=== PATIENT | male | born 1970 | race Caucasian/White ===

== ENCOUNTER 2024-07-21 23:28 | Emergency (ER) | payer MEDICAID ==
[~2024-07-21] VITALS: Ht 177.8 cm; Wt 70.0 kg
[2024-07-21 23:42] VITALS: TEMP 98.8; O2SAT 98
[2024-07-22] MEDS: SODIUM CHLORIDE 0.9% 1,000 ML IV ONE
[2024-07-22 00:20] LABS: BASOPHILS % 0.5 % (0.0-2.0); EOSINOPHILS % 2.5 % (0.0-5.0); HEMATOCRIT. 34.4 % (42.0-52.0); HEMOGLOBIN. 11.3 g/dL (14.0-18.0); LYMPHOCYTES % 11.3 % (20.0-50.0); MEAN CORPUSCULAR HEMOGLOBIN 26.7 pg (28.0-32.0); MEAN CORPUSCULAR HGB CONC 32.9 g/dL (31.0-37.0); MEAN PLATELET VOLUME 6.9 fl (7.4-10.4); MONOCYTES % 7.5 % (2.0-8.0); NEUTROPHILS % 78.2 % (40.0-76.0); PLATELET 490 x1000/uL (130-400); RED BLOOD CELL COUNT 4.25 mill/uL (4.7-6.1); RED CELL DISTRIBUTION WIDTH 16.7 % (11.6-14.6); WHITE BLOOD COUNT 13.8 x1000/uL (4.5-11.0)
[2024-07-22 00:26] LABS: CHLORIDE 105 mEq/L (98-107); POTASSIUM 4.1 mEq/L (3.5-5.1); SODIUM 132 mEq/L (136-145)
[2024-07-22 00:27] LABS: CALCIUM 9.4 mg/dL (8.7-10.4); CARBON DIOXIDE 23 mEq/L (21-32)
[2024-07-22 00:32] LABS: CREATININE 0.9 mg/dL (0.6-1.3); GLUCOSE 171 mg/dL (70-105); UREA NITROGEN BLOOD 16 mg/dL (9-23)
[2024-07-22 00:40] LABS: TROPONIN I HIGH SENSITIVITY < 4 ng/L (3.0-53)
[2024-07-22 00:41] LABS: ETHANOL BLOOD < 10 mg/dL (<10)
[2024-07-22] MEDS ORDERED: CEFTRIAXONE 1GM/50ML 50 ML IV NR (00:45)
[2024-07-22] MEDS ORDERED: ACETAMINOPHEN 325MG TABLET PO PRN ×3 (01:15→06:45)
[2024-07-22] MEDS: VANCOMYCIN 1G PREMIX 200 ML IV NR (02:22)
[2024-07-22] MEDS: LORAZEPAM 2MG/ML INJ IV NR (03:00)
[2024-07-22 03:58] VITALS: BP 143/78; PULSE 80; RESP 18; O2SAT 98
[2024-07-22] MEDS: CEFTRIAXONE 1GM/50ML 50 ML IV SCH (04:30)
[2024-07-22 04:59] LABS: PHOSPHORUS 3.1 mg/dL (2.5-4.9)
[2024-07-22] MEDS ORDERED: DOCUSATE SODIUM 100MG CAPSULE PO PRN (06:45)
[2024-07-22] MEDS ORDERED: ONDANSETRON HCL 4MG/2ML INJ IV PRN (06:45)
[2024-07-22] MEDS ORDERED: CLONIDINE 0.1MG TABLET PO PRN (06:45)
[2024-07-22] MEDS ORDERED: MAGNESIUM/ALUMINUM HYDROXIDE/SIMETHICONE 30ML UDC PO PRN (06:45)
[2024-07-22] MEDS ORDERED: DEXTROSE 50% WATER 50ML SYRINGE IV PRN (06:45)
[2024-07-22] MEDS ORDERED: MAGNESIUM 2 G PREMIX 50 ML IV NR (06:45)
[2024-07-22] MEDS ORDERED: GUAIFENESIN 200MG/10ML SUGAR FREE UDC PO PRN (06:45)
[2024-07-22] MEDS ORDERED: VANCOMYCIN 750MG/150ML (BAXTER) IV SCH (08:00)
[2024-07-22] MEDS ORDERED: INSULIN LISPRO 100 UNITS/ML SUBCUT SCH (08:20)
[2024-07-22] MEDS ORDERED: ENOXAPARIN 40MG/0.4ML SYR SUBCUT SCH (09:00)
[2024-07-22] MEDS ORDERED: BLOOD SUGAR DIAGNOSTIC STRIP TEST SCH (09:00)
== END 2024-07-22 05:45 | disposition left against medical advice (07) ==
LOC: ER 23:28 → EDBEDREQSVC 07-22 02:07 → ER 07-22 05:45
DX: R53.1 Weakness (principal); L03.311 Cellulitis of abdominal wall; I10 Essential (primary) hypertension; R00.0 Tachycardia, unspecified
CPT/HCPCS: 80048; 80320; 83605; 85025; 84484; 36415 ×2; 71045; 99284; 83735; 84100; 84145; 96361; 96365; 96366; J3370; J7030; G0480